=== PATIENT | male | born 1970 | race Caucasian/White ===

== ENCOUNTER 2022-01-25 14:19 | Emergency (ER) | payer OTHER ==
[2022-01-25] MEDS ORDERED: TETANUS & DIPHTHERIA TOX,ADULT 0.5 ML VIAL ONE (14:58)
[2022-01-25] MEDS ORDERED: FLUORESCEIN SODIUM 1 MG/WRAP ONE (15:15)
[2022-01-25] MEDS ORDERED: TETRACAINE HCL 0.5% 4ML OPTH ONE (15:15)
[2022-01-25] MEDS ORDERED: HYDROCODONE/APAP 5/325 MG TAB ONE (15:31)
[2022-01-25] MEDS ORDERED: KETOROLAC 30 MG/ML INJ ONE (16:31)
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
--- NOTE | 2022-01-25 17:01 | ER ---
Nurse's Notes [facility] Name: Mina Crawford Age: 51 yrs Sex: Male : 1970 Arrival Date: 01/25/2022 Time: 14:23 Bed 20 Private MD: Diagnosis: Conjunctival hemorrhage, right eye;Injury of conjunctiva with foreign body, right eye Presentation: 01/25 14:42 Chief complaint: Patient states: Pain in Right pain; appears to be reddened; states "I vg1 believe its from the saw dust and I think its a splinter". Pt states nausea and headache. Coronavirus screen: Vaccine status: Patient reports being unvaccinated. Client denies travel out of the [place] in the last 14 days. Ebola Screen: Patient denies exposure to infectious person. Patient denies travel to an Ebola-affected area in the 21 days before illness onset. Initial Sepsis Screen: Does the patient meet any 2 criteria? No. Patient's initial sepsis screen is negative. Does the patient have a suspected source of infection? No. Patient's initial sepsis screen is negative. Risk Assessment: Do you want to hurt yourself or someone else? Patient reports no desire to harm self or others. Onset of symptoms was January 23, 2022. 14:42 Method Of Arrival: Ambulatory vg1 14:42 Acuity: LOU 3 vg1 Triage Assessment: 14:47 General: Appears uncomfortable, Behavior is calm, cooperative. Pain: Complains of pain vg1 in right eye Pain currently is 10 out of 10 on a pain scale. Historical: - Allergies: 14:47 No Known Allergies; vg1 - Home Meds: 14:47 None [Active]; vg1 - PMHx: 14:47 None; vg1 - PSHx: 14:47 None; vg1 - Immunization history:: Client reports having NOT received the Covid vaccine. - Social history:: Smoking status: Patient reports the use of cigarette tobacco products, Reported history of juuling and/or vaping. Screenin:10 Abuse screen: Denies threats or abuse. Nutritional screening: No deficits noted. ll1 Tuberculosis screening: No symptoms or risk factors identified. Fall Risk Total Choi Fall Scale indicates No Risk (0-24 pts). Assessment: 14:50 General: Appears uncomfortable, Behavior is cooperative, appropriate for age. Neuro: ll1 Level of Consciousness is awake, alert, obeys commands, Oriented to person, place, time, situation, Appropriate for age Moves all extremities. Full function Facial symmetry appears normal, Reports headache. EENT: Eyes red area (approx. dime size) to R inner eye. . Reports pain in right eye. 15:50 Reassessment: No changes from previously documented assessment. Patient and/or family ll1 updated on plan of care and expected duration. Pain level reassessed. Patient is alert, oriented x 3, equal unlabored respirations, skin warm/dry/pink. 16:50 Reassessment: No changes from previously documented assessment. Patient and/or family ll1 updated on plan of care and expected duration. Pain level reassessed. Patient is alert, oriented x 3, equal unlabored respirations, skin warm/dry/pink. 17:10 Reassessment: No changes from previously documented assessment. Patient and/or family ll1 updated on plan of care and expected duration. Pain level reassessed. Patient is alert, oriented x 3, equal unlabored respirations, skin warm/dry/pink. Vital Signs: 14:42 BP 133 / 79; Pulse 69; Resp 16; Temp 98.8(TE); Pulse Ox 98% ; Weight 113.4 kg; Height 6 vg1 ft. 2 in. (187.96 cm); Pain 10/10; 17:10 BP 135 / 87; Pulse 56; Resp 16; Pulse Ox 98% ; ll1 14:42 Body Mass Index 32.10 (113.40 kg, 187.96 cm) vg1 Visual Acuity: 15:16 Left Eye Visual acuity 20/40, ; Both Eyes Visual acuity 20/40; Without Lenses; R eye ll1 legally blind >20/200 ED Course: 14:23 Patient arrived in ED. ds1 14:36 Tristin Haskins NP is PHCP. pm1 14:36 Miguel Ángel Wood MD is Attending Physician. pm1 14:47 Triage completed. vg1 14:47 Arm band placed on. vg1 14:54 Rosanne Robertson, DOUGLAS is Primary Nurse. ll1 16:57 Aneta Kraus MD is Referral Physician. pm1 17:00 Referral Physician role handed off by Aneta Kraus MD pm1 17:00 Ezequiel Thomas MD is Referral Physician. pm1 17:10 Patient has correct armband on for positive identification. Bed in low position. Call ll1 light in reach. Side rails up X 1. Cardiac monitoring not applicable on this patient. 17:10 No provider procedures requiring assistance completed. Patient did not have IV access ll1 during this emergency room visit. Administered Medications: 14:57 Drug: Tetanus-Diphtheria Toxoid Adult 0.5 ml {Storage Garage Attendant: [employer]. Exp: ll1 12/05/2023. Lot #: [id number]. } Route: IM; Site: left deltoid; 15:29 Follow up: Response: No adverse reaction ll1 15:15 Drug: Tetracaine Drops 0.5 % 1 drops Route: Ophthalmic; Site: right eye; ll1 15:29 Follow up: Response: No adverse reaction ll1 15:29 Drug: [place] (HYDROcodone-acetaminophen) 5 mg-325 mg 1 tabs Route: PO; ll1 16:32 Follow up: Response: No adverse reaction; Pain is decreased; RASS: Alert and Calm (0) ll1 16:31 Drug: Ketorolac 30 mg Route: IM; Site: right vastus lateralis; ll1 17:10 Follow up: Response: No adverse reaction; Pain is decreased; RASS: Alert and Calm (0) ll1 Outcome: 17:00 Discharge ordered by . pm1 17:10 Patient left the ED. ll1 17:10 Discharged to home ambulatory. ll1 17:10 Condition: stable 17:10 Discharge instructions given to patient, family, Instructed on discharge instructions, follow up and referral plans. no drinking with medication, no driving heavy equipment, medication usage, Demonstrated understanding of instructions, follow-up care, medications, Prescriptions given X 2. Signatures: Bekah Gomez ds1 Tristin Haskins NP [employer]OME[employer] FORWARDER pm1 Mihaela Hill RN RN vg1 Rosanne Robertson RN RN ll1
[2022-01-25 17:34] VITALS: BP 133/79; TEMP 98.8; O2SAT 98
== END 2022-01-25 17:10 | disposition home or self-care (01) ==
LOC: ER 14:19
DX: H11.31 Conjunctival hemorrhage, right eye (principal); T15.11XA Foreign body in conjunctival sac, right eye, initial encounter; Z23 Encounter for immunization; Z72.0 Tobacco use
CPT/HCPCS: 90471; 90714; 96372; 99283